=== PATIENT | male | born 1965 | race Hispanic/Latino ===

== ENCOUNTER 2025-03-15 07:41 | Outpatient (CLI) | payer BC ==
[2025-03-15 08:27] LABS: Estimated GFR - POC 86.0
[2025-03-15] MEDS ORDERED: Iopamidol 370 76% 100 ML VIAL ONE (12:21)
== END 2025-03-15 07:42 | disposition home or self-care (01) ==
LOC: CT 07:41
PROVIDERS: ATTEND Family Medicine
DX: R22.30 Localized swelling, mass and lump, unspecified upper limb (principal); N62 Hypertrophy of breast
CPT/HCPCS: 36415; 71260; 82565; Q9967